=== PATIENT | male | born 1990 | race Asian ===

== ENCOUNTER 2018-06-21 14:14 | Emergency (ER) | payer OTHER ==
[~2018-06-21] VITALS: Ht 170.2 cm; Wt 68.0 kg
[2018-06-21 14:48] VITALS: TEMP 99
[2018-06-21 17:36] VITALS: BP 124/78
[2018-06-23] MEDS ORDERED: CIPRO500 MG PO (02:36)
[2018-06-24] MEDS ORDERED: ZITHROMAX500 MG PO (09:53)
== END 2018-06-21 17:34 | disposition home or self-care (01) ==
LOC: ED 14:14
DX: L73.1 Pseudofolliculitis barbae (principal)
CPT/HCPCS: 36415; 87081; 87880; 96372; 99283; J1885

== ENCOUNTER 2018-06-22 15:21 | Outpatient (CLI) | payer OTHER ==
[2018-06-23] MEDS ORDERED: CIPRO500 MG PO ×2 (02:36)
== END 2018-06-22 15:26 | disposition short-term general hospital (02) ==
LOC: AMB 15:21
DX: R06.02 Shortness of breath (principal); J02.9 Acute pharyngitis, unspecified
CPT/HCPCS: A0425; A0429

== ENCOUNTER 2018-06-22 15:28 | Emergency (ER) | payer OTHER ==
[~2018-06-22] VITALS: Ht 170.2 cm; Wt 68.0 kg
[2018-06-22 18:08] VITALS: BP 128/86; TEMP 98.2
[2018-06-23] MEDS ORDERED: CIPRO500 MG PO (02:36)
[2018-06-24] MEDS ORDERED: ZITHROMAX500 MG PO (09:53)
== END 2018-06-22 18:00 | disposition home or self-care (01) ==
LOC: ED 15:28
DX: L04.0 Acute lymphadenitis of face, head and neck (principal); J02.9 Acute pharyngitis, unspecified
CPT/HCPCS: 96372; 99283; J0696; Q9963

== ENCOUNTER 2018-06-23 02:15 | Observation (INO) | payer OTHER ==
[~2018-06-23] VITALS: Ht 167.6 cm; Wt 69.0 kg
[2018-06-23] VITALS (7 sets, daily range): BP systolic 112–137; BP diastolic 69–94; TEMP 98.2–99.8; Ht 167.6 cm; Wt 69.0 kg
[2018-06-23] MEDS ORDERED: CIPRO500 MG PO ×2 (02:36)
[2018-06-23 03:01] LABS: PLATELET COUNT 354 K/uL (142-355)
[2018-06-23 03:08] LABS: POTASSIUM 3.3 mmol/L (3.6-5.2)
[2018-06-24 03:58] VITALS: BP 106/62; TEMP 98.1
[2018-06-24 07:32] LABS: PLATELET COUNT 322 K/uL (142-355)
[2018-06-24 08:06] VITALS: BP 116/79; TEMP 97.9
[2018-06-24 08:14] LABS: POTASSIUM 3.8 mmol/L (3.6-5.2)
[2018-06-24] MEDS ORDERED: ZITHROMAX500 MG PO ×2 (09:53)
== END 2018-06-24 10:55 | disposition home or self-care (01) ==
LOC: ED 02:15 → MED/SURG 03:00
PROVIDERS: Emergency Medicine
DX: J02.8 Acute pharyngitis due to other specified organisms (principal); R59.1 Generalized enlarged lymph nodes
CPT/HCPCS: 36415; 80053; 85027; 87081; 87880; 94760; 96365; 96366; 96367; 96372; 99220; 99283; G0378; J0696; J2930

== ENCOUNTER 2020-02-05 13:18 | Emergency (ER) | payer OTHER ==
[~2020-02-05] VITALS: Ht 172.7 cm; Wt 77.1 kg
[~2020-02-05 13:18] MED LIST: CIPRO500 MG PO; ZITHROMAX500 MG PO
[2020-02-05 13:25] VITALS: TEMP 98.4
[2020-02-05 14:04] LABS: PLATELET COUNT 265 K/uL (142-355)
[2020-02-05 14:11] LABS: POTASSIUM 3.9 mmol/L (3.6-5.2); SODIUM 136 mmol/L (136-145)
[2020-02-05 14:30] VITALS: BP 123/79
== END 2020-02-05 14:40 | disposition home or self-care (01) ==
LOC: ED 13:18
PROVIDERS: Family Medicine
DX: R42 Dizziness and giddiness (principal); F41.8 Other specified anxiety disorders
CPT/HCPCS: 80053; 82550; 82553; 83605; 84484; 85027; 93005; 99283

== ENCOUNTER 2020-12-11 14:36 | Emergency (ER) | payer OTHER ==
[~2020-12-11] VITALS: Ht 172.7 cm; Wt 77.1 kg
[2020-12-11 15:20] VITALS: BP 133/74; TEMP 99.7
== END 2020-12-11 15:20 | disposition home or self-care (01) ==
LOC: ED 14:36
DX: F41.8 Other specified anxiety disorders (principal)
CPT/HCPCS: 99282

== ENCOUNTER 2021-06-09 15:58 | Emergency (ER) | payer OTHER ==
[~2021-06-09] VITALS: Ht 172.7 cm; Wt 77.1 kg
[2021-06-09 16:02] VITALS: BP 133/93; TEMP 97.8
[2021-06-09 16:50] LABS: PLATELET COUNT 249 K/uL (142-355)
[2021-06-09 16:59] LABS: POTASSIUM 4.2 mmol/L (3.6-5.2)
== END 2021-06-09 17:31 | disposition home or self-care (01) ==
LOC: ED 15:58
PROVIDERS: Emergency Medicine Emergency Medical Services
DX: K80.50 Calculus of bile duct without cholangitis or cholecystitis without obstruction (principal)
CPT/HCPCS: 80053; 81000; 82150; 83690; 85027; 96360; 96374; 96375; 99284; J1885; J2405; J3490